=== PATIENT | female | born 1965 | race Asian ===

== ENCOUNTER 2017-08-08 17:26 | Emergency (ER) | payer OTHER ==
[~2017-08-08] VITALS: Ht 170.2 cm; Wt 72.1 kg
[2017-08-08 17:48] VITALS: Ht 170.2 cm; Wt 72.1 kg
[2017-08-08 20:21] VITALS: BP 133/92
== END 2017-08-08 20:21 | disposition home or self-care (01) ==
LOC: ED 17:26
DX: M25.512 Pain in left shoulder (principal); M25.532 Pain in left wrist; E78.00 Pure hypercholesterolemia, unspecified; Z88.1 Allergy status to other antibiotic agents; V89.2XXA Person injured in unspecified motor-vehicle accident, traffic, initial encounter; Y93.I9 Activity, other involving external motion; Y92.89 Other specified places as the place of occurrence of the external cause; Y99.8 Other external cause status